=== PATIENT | female | born 1990 | race Caucasian/White ===

== ENCOUNTER 2017-10-05 19:05 | Emergency (ER) | payer SELFPAY ==
[~2017-10-05] VITALS: Ht 149.9 cm; Wt 63.5 kg
--- NOTE | 2017-10-05 19:09 | ED.ADGEN ---
Adult General Chief Complaint Chief Complaint " I got bad dental pain.. it just started all sudden..." HPI HPI Patient is a 27 year old female who presents with above hx and complaints of dental pain. Pt. localizes her pain in molar areas 15, 16. Has other areas of dental decay. No trismus. Pt. denies hx of immunosuppression. States recently has move into area and not made follow up with Dentist. Review of Systems Review of Systems Constitutional: Denies fever or chills [] Eyes: Denies change in visual acuity, redness, or eye pain [] HENT: Denies nasal congestion or sore throat []Complaints of dental pain. Respiratory: Denies cough or shortness of breath [] Cardiovascular: No additional information not addressed in HPI [] GI: Denies abdominal pain, nausea, vomiting, bloody stools or diarrhea [] : Denies dysuria or hematuria [] Musculoskeletal: Denies back pain or joint pain [] Integument: Denies rash or skin lesions [] Neurologic: Denies headache, focal weakness or sensory changes [] Endocrine: Denies polyuria or polydipsia [] All other systems were reviewed and found to be within normal limits, except as documented in this note. Family History Family History Non-contributory Current Medications Current Medications Current Medications Medications (Trade) Dose Ordered Sig/Raudel Start Time Stop Time Status Last Admin Dose Admin Cephalexin HCl (Keflex) 500 mg 1X ONCE 10/05/17 20:45 10/05/17 20:46 DC 10/05/17 20:51 500 MG Hydrocodone Bitartrate/ Ibuprofen (Vicoprofen 7.5-200) 2 tab 1X ONCE 10/05/17 20:45 10/05/17 20:46 DC 10/05/17 20:51 2 TAB see Nursing for home meds. Allergies Allergies Allergies Coded Allergies Type Severity Reaction Last Updated Verified acetaminophen Allergy Unknown 10/05/17 Yes hydrogen peroxide Allergy Unknown 10/05/17 Yes oxycodone Allergy Unknown 10/05/17 Yes Physical Exam Physical Exam Constitutional: Moderately acute distress, non-toxic appearance. [] HENT: Normocephalic, atraumatic, bilateral external ears normal, oropharynx moist, no oral exudates, nose normal. []Denial caries.. pain localized to 15, 16 molar area. No adenopathy or pointing abscess. Lip rings, tongue stud. Eyes: PERRLA, EOMI, conjunctiva normal, no discharge. [] Neck: Normal range of motion, no tenderness, supple, no stridor. [] Cardiovascular:Heart rate regular rhythm, no murmur [] Lungs & Thorax: Bilateral breath sounds equal with scattered wheezes on auscultation [] Abdomen: Bowel sounds normal, soft, no tenderness, no masses, no pulsatile masses. [] Skin: Warm, dry, no erythema, no rash. [] Back: No tenderness, no CVA tenderness. [] Extremities: No tenderness, no cyanosis, no clubbing, ROM intact, no edema. [] Neurologic: Alert and oriented X 3, normal motor function, normal sensory function, no focal deficits noted. [] Psychologic: Affect anxious, , judgement normal, mood normal. [] Current Patient Data Vital Signs Vital Signs Date Time Temp Pulse Resp B/P (MAP) Pulse Ox O2 Delivery O2 Flow Rate FiO2 10/05/17 19:22 98.8 83 21 98 Room Air EKG EKG [] Radiology/Procedures Radiology/Procedures [] Course & Med Decision Making Course & Med Decision Making Pertinent Labs and Imaging studies reviewed. (See chart for details). Must follow up with dentist. Take Keflex 500 three times a day. Ibuprofen for pain. Marked pain take Vicoprofen. Must follow up. Further narcotics must be supplied by Dentist or primary. [] Final Impression Final Impression 1. Dental Pain[]- 15, 16. Problems: Dragon Disclaimer Dragon Disclaimer This electronic medical record was generated, in whole or in part, using a voice recognition dictation system. TUNG LINK MD October 05, 2017 19:09
[2017-10-05 19:22] VITALS: BP 137/71
[2017-10-05] MEDS ORDERED: CEPH-264 PO (20:34)
[2017-10-05] MEDS ORDERED: HYDR-79 PO (20:34)
[2017-10-05] MEDS ORDERED: CEPHALEXIN 250 MG CAPSULE PO ONE (20:45)
[2017-10-05] MEDS ORDERED: HYDROcodon/IBUPROFEN 7.5/200MG 1 TAB TABLET PO ONE (20:45)
== END 2017-10-05 21:11 | disposition home or self-care (01) ==
LOC: ER 19:05
DX: K08.89 Other specified disorders of teeth and supporting structures (principal); Z88.6 Allergy status to analgesic agent; Z88.5 Allergy status to narcotic agent
CPT/HCPCS: 99283

== ENCOUNTER 2020-04-02 14:14 | Emergency (ER) | payer SELFPAY ==
[~2020-04-02] VITALS: Ht 147.3 cm; Wt 59.9 kg
[~2020-04-02 14:14] MED LIST: CEPH-264 PO; HYDR-1179 PO
[2020-04-02] MEDS ORDERED: IV NORMAL SALINE 1,000ML 1,000 ML IV SCH (14:43)
[2020-04-02] MEDS ORDERED: ACETAMINOPHEN 650 MG/20.3 ML SOLUTION. PO ONE (14:45)
[2020-04-02] MEDS ORDERED: PIPERACILLIN/TAZOBACTAM 4.5 GM in IV NORMAL SALINE 50ML 50 ML IV ONE (14:45)
[2020-04-02] MEDS ORDERED: DEXAMETHASONE SOD PHOS 10 MG/ML VIAL. IV ONE (14:45)
[2020-04-02] MEDS ORDERED: 0.9 % SODIUM CHLORIDE 10 ML DISP.SYRIN. IV PRN (14:45)
[2020-04-02] MEDS ORDERED: VANCOMYCIN PER PHARMACY MC ONE (14:45)
[2020-04-02] MEDS ORDERED: IV NORMAL SALINE 50ML 50 ML ONE (14:55)
[2020-04-02] MEDS ORDERED: PIPERACILLIN/TAZOBACTAM 4.5 GM VIAL IV ONE (14:55)
[2020-04-02] MEDS ORDERED: IOHEXOL 300 MG/ML 75 ML VIAL. IV ONE (15:00)
[2020-04-02] MEDS ORDERED: VANCOMYCIN 1.5 GM in IV NORMAL SALINE 500ML 500 ML IV ONE (15:00)
--- NOTE | 2020-04-02 15:11 | PHYS DOC ---
Past History Past Medical History: No Pertinent History (MARY STEEL APRN) Past Surgical History: No Surgical History (MARY STEEL APRN) Alcohol Use: Occasionally Drug Use: None (MARY STEEL APRN) Adult General Chief Complaint Chief Complaint: COUGH HPI HPI Patient is a 29-year-old female patient presenting to the ED today complaining of sore throat that began 1 week ago. Patient states she has tried taking her old amoxicillin with no relief. She states symptoms have gotten worse and now she had swollen tonsils a fever and a cough. Denies any chest pain or shortness of breath. (MARY STEEL APRN) Review of Systems Review of Systems Constitutional: Reports fever Eyes: Denies change in visual acuity, redness, or eye pain [] HENT: Reports sore throat with enlarged tonsils. Denies nasal congestion Respiratory: Reports cough, denies shortness of breath [] Cardiovascular: No additional information not addressed in HPI [] GI: Denies abdominal pain, nausea, vomiting, bloody stools or diarrhea [] : Denies dysuria or hematuria [] Musculoskeletal: Denies back pain or joint pain [] Integument: Denies rash or skin lesions [] Neurologic: Denies headache, focal weakness or sensory changes [] All other systems were reviewed and found to be within normal limits, except as documented in this note. (MARY STEEL APRN) Allergies Allergies Allergies Coded Allergies Type Severity Reaction Last Updated Verified hydrogen peroxide Allergy Unknown 10/05/17 Yes oxycodone Allergy Unknown 10/05/17 Yes (MARY STEEL APRN) Physical Exam Physical Exam Constitutional: Well developed, well nourished, no acute distress, non-toxic appearance. [] HENT: Normocephalic, atraumatic, bilateral external ears normal, oropharynx moist, no oral exudates, nose normal. [] Airways open, +3 tonsils, midline uvula, mild exudate noted bilaterally +3 tonsils worse on the right side. Eyes: PERRLA, EOMI, conjunctiva normal, no discharge. [] Neck: Normal range of motion, no tenderness, supple, no stridor. [] Cardiovascular:Heart rate regular rhythm, no murmur [] Lungs & Thorax: Bilateral breath sounds clear to auscultation [] Abdomen: Bowel sounds normal, soft, no tenderness, no masses, no pulsatile masses. [] Skin: Warm, dry, no erythema, no rash. [] Back: No tenderness, no CVA tenderness. [] Extremities: No tenderness, no cyanosis, no clubbing, ROM intact, no edema. [] Neurologic: Alert and oriented X 3, normal motor function, normal sensory function, no focal deficits noted. [] Psychologic: Affect normal, judgement normal, mood normal. [] (MARY STEEL APRN) EKG EKG [] (MARY STEEL APRN) Radiology/Procedures Radiology/Procedures []PROCEDURE: CT SOFT TISSUE NECK W/CONTRAST EXAM: CT Neck with IV contrast INDICATION: Reason: peritonsillar abscess / Spl. Instructions: / History: TECHNIQUE: Multiple contiguous axial images were obtained of the neck with the use of IV contrast. Post-processing reconstructed images were obtained for interpretation. All CT scans performed at this facility utilize dose optimization techniques as appropriate to the exam, including the following: Automated exposure control and adjustment of the mA and/or KV according to patient size (this includes techniques or standardized protocols for targeted exams where dose is indication/reason for exam). IV CONTRAST: Administered COMPARISON: None FINDINGS: INTRACRANIAL STRUCTURES & ORBITS: Unremarkable. AERODIGESTIVE: Bilateral faucial tonsils demonstrates a striated pattern of enhancement with no discrete areas of hypoenhancement. Nasal cavity, nasopharynx, oral cavity, oropharynx, hypopharynx, larynx, and visualized trachea and esophagus otherwise demonstrate no masses or abnormal enhancement. Incidental tongue piercing, nasal piercings, and lateral left eyebrow piercings are noted. CERVICAL LYMPH NODES & SOFT TISSUES: No adenopathy, soft tissue mass, or fluid collection. THYROID & SALIVARY GLANDS: Unremarkable. LUNG APICES: Clear. OSSEOUS: Unremarkable IMPRESSION: Bilateral faucial tonsillitis. No peritonsillar abscess. Electronically signed by: Priyank Shay MD (04/02/2020 3:51 PM) [facility] [place] SIGNED BY: PRIYANK SHAY MD DATE: 04/02/20 1553 CC: MARY STEEL APRN; PCP,NO ~ (MARY STEEL APRN) Heart Score Risk Factors: Risk Factors: DM, Current or recent (<one month) smoker, HTN, HLP, family history of CAD, obesity. Risk Scores: Risk Factors: DM, Current or recent (<one month) smoker, HTN, HLP, family history of CAD, obesity. (MARY STEEL APRN) Course & Med Decision Making Course & Med Decision Making Pertinent Labs and Imaging studies reviewed. (See chart for details) This is a 29-year-old female patient presented to the ED today with sore throat fever and cough, sore throat began a week ago. She has tried taking amoxicillin with no relief. Arrives in the ED with a fever of 103, HR 137, blood pressure 146/82, O2 sats 97% on room air, respiration 24. Sepsis work-up was initiated including IV fluids and antibiotics (zosyn and V ancomycin. She was swabbed for influenza, COVID-[address] a CT of the neck soft tissue was obtained. CBC with a WBC of 19.8 and a left shift. CMP with K of 3.1 given 40meq of K. Urine positive for UTI. CT of the neck soft tissue noted acute tonsillitis, no peritonsillar abscess. Spoke with Dr. Cassidy who requested patient to be transferred out because we do not have ENT at [facility] Spoke with Dr. Romero who accepted patient for admission at [facility]. Patient states she is feeling better. Throat and exterior neck are not as swollen. Airway is still open EMS will transport (MARY STEEL APRN) Dragon Disclaimer Dragon Disclaimer This electronic medical record was generated, in whole or in part, using a voice recognition dictation system. (MARY STEEL APRN) Date and Time of Assessment Date: Apr 02, 2020 Time: 15:33 (MARY STEEL APRN) Fluid Challenge: Is the fluid challenge complet: No IBW Target Volume Used: No BMI > 30: No (MARY STEEL APRN) Vital Signs Temperature Source: Oral (MARY STEEL APRN) Respirations Respiratory Effort: Normal Respiratory Pattern: Normal (MARY STEEL APRN) Cardiovascular Pulse Rhythm: Regular Heart: Nml rate, reg. rhythm (MARY STEEL APRN) Lung Sounds Breath Sounds: Clear (MARY STEEL APRN) Capillary Refill Capillary Refill: Rt Hand > 3 seconds (MUTUNGA,MARY BACKUP ENGINEER) Peripheral Pulse Pulse Location: Monitor Pulse Strength: Normal (2+) (MUTUNGA,MARY BACKUP ENGINEER) Integumentary Skin: Warm Skin Moisture: Moist Skin Turgor: Normal Skin Color: warm Fingernail Color: WNL (MUTUNGA,MARY BACKUP ENGINEER) Attending Co-Sign The patient was seen and interviewed as well as examined at the bedside. The chart was reviewed. The case was discussed. Agree with the plan of care. (HERIBERTO MORENO DO) Departure Departure: Impression: Primary Impression: Fever Additional Impressions: Sepsis Acute tonsillitis UTI (urinary tract infection) Cough Disposition: 05 DC/TRF OTHER TYPE INSTITUTI Condition: STABLE Referrals: PCP,NO (PCP) Problem Qualifiers Primary Impression: Fever Fever type: unspecified Qualified Codes: R50.9 - Fever, unspecified Additional Impressions: Sepsis Sepsis type: sepsis due to unspecified organism Sepsis acute organ dysfunction status: unspecified Qualified Codes: A41.9 - Sepsis, unspecified organism Acute tonsillitis Pharyngitis/tonsillitis etiology: unspecified etiology Qualified Codes: J03.90 - Acute tonsillitis, unspecified UTI (urinary tract infection) Urinary tract infection type: site unspecified Hematuria presence: without hematuria Qualified Codes: N39.0 - Urinary tract infection, site not specified MARY STEEL APRN Apr 02, 2020 15:11 HERIBERTO MORENO DO Apr 03, 2020 06:24
[2020-04-02 15:28] LABS: CALCIUM 8.9 mg/dL (8.5-10.1); CREATININE 0.9 mg/dL (0.6-1.0); GFR 74.6; POTASSIUM 3.1 mmol/L (3.5-5.1)
[2020-04-02 15:35] LABS: ALBUMIN 3.4 g/dL (3.4-5.0); ALBUMIN/GLOBULIN RATIO 0.7 (1.0-1.7); TOTAL BILIRUBIN 0.5 mg/dL (0.2-1.0); TOTAL PROTEIN 8.4 g/dL (6.4-8.2)
[2020-04-02 15:35] LABS: BILIRUBIN,URINE NEG (NEG); CLARITY,URINE CLEAR; COLOR,URINE AMBER; GLUCOSE,URINE 100 mg/dL (NEG); NITRITE,URINE POS (NEG); UROBILINOGEN,URINE >=8.0 mg/dL (0.2 mg/dL)
[2020-04-02 15:36] LABS: BASO # 0.1 x10^3/uL (0.0-0.2); BASO % 1 % (0-3); EOS # 0.1 x10^3/uL (0.0-0.7); EOS % 0 % (0-3); HEMATOCRIT 38.8 % (36.0-47.0); HEMOGLOBIN 13.1 g/dL (12.0-15.5); LYMPH # 1.8 x10^3/uL (1.0-4.8); LYMPH % 9 % (24-48); MEAN CORPUSCULAR HEMOGLOBIN 29 pg (25-35); MEAN CORPUSCULAR HGB CONC 34 g/dL (31-37); MEAN CORPUSCULAR VOLUME 85 fL (79-100); MONO # 1.9 x10^3/uL (0.0-1.1); MONO % 10 % (0-9); NEUT # 15.9 x10^3uL (1.8-7.7); NEUT % 80 % (31-73); PLATELET COUNT 375 x10^3/uL (140-400); RED BLOOD COUNT 4.57 x10^6/uL (3.50-5.40); RED CELL DISTRIBUTION WIDTH 13.1 % (11.5-14.5); WHITE BLOOD COUNT 19.8 x10^3/uL (4.0-11.0)
[2020-04-02 15:36] LABS: RBC,URINE 0 /HPF (0-2); SQUAMOUS EPITHELIAL CELL,UR MOD /LPF
[2020-04-02 15:37] LABS: BACTERIA,URINE FEW /HPF (0-FEW)
[2020-04-02 15:52] LABS: INFLUENZA A PATIENT NEGATIVE (NEGATIVE); INFLUENZA B PATIENT NEGATIVE (NEGATIVE)
--- NOTE | 2020-04-02 15:54 | RAD ---
EXAM: CT Neck with IV contrast INDICATION: Reason: peritonsillar abscess / Spl. Instructions: / History: TECHNIQUE: Multiple contiguous axial images were obtained of the neck with the use of IV contrast. Post-processing reconstructed images were obtained for interpretation. All CT scans performed at this facility utilize dose optimization techniques as appropriate to the exam, including the following: Automated exposure control and adjustment of the mA and/or KV according to patient size (this includes techniques or standardized protocols for targeted exams where dose is indication/reason for exam). IV CONTRAST: Administered COMPARISON: None FINDINGS: INTRACRANIAL STRUCTURES & ORBITS: Unremarkable. AERODIGESTIVE: Bilateral faucial tonsils demonstrates a striated pattern of enhancement with no discrete areas of hypoenhancement. Nasal cavity, nasopharynx, oral cavity, oropharynx, hypopharynx, larynx, and visualized trachea and esophagus otherwise demonstrate no masses or abnormal enhancement. Incidental tongue piercing, nasal piercings, and lateral left eyebrow piercings are noted. CERVICAL LYMPH NODES & SOFT TISSUES: No adenopathy, soft tissue mass, or fluid collection. THYROID & SALIVARY GLANDS: Unremarkable. LUNG APICES: Clear. OSSEOUS: Unremarkable IMPRESSION: Bilateral faucial tonsillitis. No peritonsillar abscess. Electronically signed by: Kaden Shay MD (04/02/2020 3:51 PM) [facility] [place]
[2020-04-02 16:29] LABS: % BASOS 1 % (0-3); % EOS 1 % (0-5); % LYMPHS 7 % (24-48); % MONOS 6 % (0-10); % SEGS 85 % (35-66)
[2020-04-02 16:30] LABS: PLT ESTIMATE ADEQUATE (ADEQUATE)
[2020-04-02] MEDS ORDERED: POTASSIUM CHLORIDE 20 MEQ TABLET.ER. PO ONE (17:15)
[2020-04-02 17:27] VITALS: BP 120/71
--- NOTE | 2020-04-03 11:57 | RAD ---
EXAM: Chest, single view. HISTORY: Cough. Fever. COMPARISON: None. FINDINGS: A frontal view of the chest is obtained. There is no infiltrate, pleural effusion or pneumothorax. The heart is normal in size. There are metallic clips overlying the aortic arch. IMPRESSION: No acute pulmonary finding. Electronically signed by: Mendy Collier MD (04/03/2020 11:54 AM) [id number]
== END 2020-04-02 19:39 | disposition short-term general hospital (02) ==
LOC: ER 14:14
DX: A41.9 Sepsis, unspecified organism (principal); J03.90 Acute tonsillitis, unspecified; N39.0 Urinary tract infection, site not specified; Z20.828 Contact with and (suspected) exposure to other viral communicable diseases; Z88.5 Allergy status to narcotic agent; Z88.8 Allergy status to other drugs, medicaments and biological substances
CPT/HCPCS: 36415; 70491; 71045; 80053; 81001; 81025; 83605; 85007; 85025; 87040; 87070; 87804; 87880; 96365; 96367; 96375; 99285; C9803; J1100; J2543; J3370; J7030; J7040; Q9967; U0003

== ENCOUNTER 2020-08-07 20:38 | Emergency (ER) | payer SELFPAY ==
[~2020-08-07] VITALS: Ht 147.3 cm; Wt 63.6 kg
[2020-08-07 20:40] VITALS: BP 136/79
[2020-08-07] MEDS: IBUPROFEN 600 MG TABLET. PO ONE (21:07)
[2020-08-07] MEDS ORDERED: PENI500T PO (21:10)
--- NOTE | 2020-08-07 21:11 | PHYS DOC ---
Past History Past Medical History: Depression, Other Additional Past Medical Histor: SCOLIOSIS (MIKKI PRAJAPATI APRN) Past Surgical History: Other Additional Past Surgical Histo: HEART SURGERY A (MIKKI PRAJAPATI APRN) Alcohol Use: None Drug Use: None (MIKKI PRAJAPATI APRN) General Adult HPI: HPI: Patient is a 30-year-old female who presents with sore throat and fever since last night. Patient denies taking anything for pain or fever at home. Patient states that she is able to keep down liquids. Denies nausea/vomiting/diarrhea. (MIKKI PRAJAPATI APRN) Review of Systems: Review of Systems: Constitutional: Denies fever or chills Eyes: Denies change in visual acuity HENT: Denies nasal congestion, reports sore throat Respiratory: Denies cough or shortness of breath Cardiovascular: Denies chest pain or edema GI: Denies abdominal pain, nausea, vomiting, bloody stools or diarrhea : Denies dysuria Musculoskeletal: Denies back pain or joint pain Integument: Denies rash Neurologic: Denies headache, focal weakness or sensory changes Endocrine: Denies polyuria or polydipsia Lymphatic: Denies swollen glands Psychiatric: Denies depression or anxiety (MIKKI PRAJAPATI APRN) Allergies: Allergies: Allergies Coded Allergies Type Severity Reaction Last Updated Verified hydrogen peroxide Allergy Unknown 10/05/17 Yes oxycodone Allergy Unknown 10/05/17 Yes (MIKKI PRAJAPATI APRN) Physical Exam: PE: Constitutional: Well developed, well nourished, no acute distress, non-toxic appearance. [] HENT: Normocephalic, oropharynx moist, red, oral exudates Eyes: PERRLA, EOMI, conjunctiva normal, no discharge. [] Neck: Normal range of motion, no tenderness, supple, no stridor. [] Cardiovascular:Heart rate regular rhythm, no murmur [] Lungs & Thorax: Bilateral breath sounds clear to auscultation [] Abdomen: Bowel sounds normal, soft, no tenderness, no masses, no pulsatile masses. [] Skin: Warm, dry, no erythema, no rash. [] Back: No tenderness, no CVA tenderness. [] Extremities: No tenderness, no cyanosis, no clubbing, ROM intact, no edema. [] Neurologic: Alert and oriented X 3, normal motor function, normal sensory function, no focal deficits noted. [] Psychologic: Affect normal, judgement normal, mood normal. [] (MIKKI PRAJAPATI APRN) EKG: EKG: [] (MIKKI PRAJAPATI APRN) Radiology/Procedures: Radiology/Procedures: [] (MIKKI PRAJAPATI APRN) Heart Score: C/O Chest Pain: No Risk Factors: Risk Factors: DM, Current or recent (<one month) smoker, HTN, HLP, family history of CAD, obesity. Risk Scores: Score 0 - 3: 2.5% MACE over next 6 weeks - Discharge Home Score 4 - 6: 20.3% MACE over next 6 weeks - Admit for Clinical Observation Score 7 - 10: 72.7% MACE over next 6 weeks - Early Invasive Strategies (MIKKI PRAJAPATI APRN) Course & Med Decision Making: Course & Med Decision Making Pertinent Labs and Imaging studies reviewed. (See chart for details) [] Patient being seen for sore throat since last night and fever. Denies taking anything for pain. Tonsils are swollen and red, with tonsillar exudate. Patient is afebrile. Rapid strep ordered. Rapid strep positive. Patient given ibuprofen and the emergency room and sent home with a prescription. Patient to complete prescription as directed. Take Tylenol and ibuprofen at home for fever and discomfort. Patient is to return to the emergency room with worsening symptoms or concerns. (MIKKI PRAJAPATI APRN) Dragon Disclaimer: Dragon Disclaimer: This electronic medical record was generated, in whole or in part, using a voice recognition dictation system. (MIKKI PRAJAPATI APRN) Departure Departure: Impression: Primary Impression: Streptococcal pharyngitis Disposition: 01 DC HOME SELF CARE/HOMELESS Condition: STABLE Referrals: PCP,NO (PCP) Patient Instructions: Strep Throat, Group A Streptococcus Additional Instructions: You were seen in the emergency room for sore throat and fever. Your rapid strep was positive. I have written you a prescription for an antibiotic. Please take antibiotic as directed. Take ibuprofen and Tylenol at home for discomfort and fever. Return to the emergency room with worsening symptoms or concerns. EMERGENCY DEPARTMENT GENERAL DISCHARGE INSTRUCTIONS Thank you for coming to [facility] (ED) today and trusting us with you care. We trust that you had a positivie experience in our Emergency Department. If you wish to speak to the department management, you may call the director at [phone]. YOUR FOLLOW UP INSTRUCTIONS ARE FOLLOWS: 1. Do you have a private Doctor? If you do not have a private doctor, please ask for a resource list of physicians or clinics that may be able to assist you with fol low up care. 2. The Emergency Physician has interpreted your x-rays. The X-Ray specialist will also review them. If there is a change in the findings, you will be notified in 48 hours when at all possible. 3. A lab test or culture has been done, your results will be reviewed and you will be notified if you need a change in treatment. ADDITIONAL INSTRUCTIONS AND INFORMATION: 1. Your care today has been supervised by a physician who is specially trained in emergency care. Many problems require more than one evaluation for a complete diagnosis and treatment. We recommend that you schedule your follow up appointment as r ecommended to ensure complete treatment of you illness or injury. If you are unable to obtain follow up care and continue to have a problem, or if your condition worsens, we recommend that you return to the ED. 2. We are not able to safely determine your condition over the phone nor are we able to give sound medical advice over the phone. For these safety reasons, if you call for medical advice we will ask you to come to the ED for further evaluation. 3. If you have any questions regarding these discharge instructions please call the ED at [phone]. SAFETY INFORMATION: In the interest of safety, wellness, and injury prevention; we encourage you to wear your sealbelt, if you smoke; quite smoking, and we encourage family to use a protective helmet for bicycling and other sporting events that present an increased risk for head injury. IF YOUR SYMPTOMS WORSEN OR NEW SYMPTOMS DEVELOP, OR YOU HAVE CONCERNS ABOUT YOUR CONDITION; OR IF YOUR CONDITION WORSENS WHILE YOU ARE WAITING FOR YOUR FOLLOW UP APPOINTMENT; EITHER CONTACT YOUR PRIMARY CARE DOCTOR, THE PHYSICIAN WHOSE NAME AND NUMBER YOU WERE GIVEN, OR RETURN TO THE ED IMMEDIATELY. Scripts Penicillin V Potassium (PENICILLIN V POTASSIUM) 500 Mg Tablet 500 MG PO BID for infection for 10 Days, #19 TAB Prov: MIKKI PRAJAPATI APRN 08/07/20 Attending Signature Attending Signature I have participated in the care of this patient and I have reviewed and agree with all pertinent clinical information above including history, exam, and recommendations. (TUNG LINK MD) MIKKI PRAJAPATI APRN Aug 07, 2020 21:11 TUNG LINK MD Aug 08, 2020 03:12
[2020-08-07] MEDS ORDERED: PENICILLIN V K 250 MG TABLET. ONE (21:19)
[2020-08-07] MEDS: PENICILLIN V K 250 MG TABLET. PO ONE (21:21)
== END 2020-08-07 21:25 | disposition home or self-care (01) ==
LOC: ER 20:38
DX: J02.0 Streptococcal pharyngitis (principal); B95.0 Streptococcus, group A, as the cause of diseases classified elsewhere; Z88.5 Allergy status to narcotic agent; Z88.8 Allergy status to other drugs, medicaments and biological substances
CPT/HCPCS: 87880; 99283

== ENCOUNTER 2021-06-09 14:04 | Emergency (ER) | payer OTHER ==
[~2021-06-09] VITALS: Ht 149.9 cm; Wt 63.0 kg
[~2021-06-09 14:04] MED LIST changes: +PENI500T PO
[2021-06-09 16:20] VITALS: BP 119/64
[2021-06-09 17:14] LABS: INFLUENZA A PATIENT NEGATIVE (NEGATIVE); INFLUENZA B PATIENT NEGATIVE (NEGATIVE)
--- NOTE | 2021-06-09 17:20 | PHYS DOC ---
Past History Past Medical History: No Pertinent History, Depression, Other Additional Past Medical Histor: SCOLIOSIS Past Surgical History: No Surgical History Additional Past Surgical Histo: PDA REPAIR Alcohol Use: None Drug Use: None Adult General Chief Complaint Chief Complaint: FLU SYMPTOM HPI HPI Patient is a 31 year old female who presents with flulike symptoms. She complains of sore throat, general malaise and myalgias. Has been ill over the last couple of days. Has cough symptoms. No nausea or vomiting. No shortness of breath. Primarily comes to the emergency department for a COVID test today. Review of Systems Review of Systems Constitutional: Denies fever or chills Eyes: Denies change in visual acuity, redness, or eye pain HENT: Nasal congestion, sore throat Respiratory: Cough Cardiovascular: No additional information not addressed in HPI GI: Denies abdominal pain : Denies Musculoskeletal: Myalgias Integument: Denies rash or skin lesions Neurologic: Denies Endocrine: Denies All other systems were reviewed and found to be within normal limits, except as documented in this note. Allergies Allergies Allergies Coded Allergies Type Severity Reaction Last Updated Verified hydrogen peroxide Allergy Unknown 10/05/17 Yes oxycodone Allergy Unknown 10/05/17 Yes Physical Exam Physical Exam Constitutional: Well developed, well nourished, no acute distress, non-toxic appearance. HENT: Normocephalic, atraumatic, bilateral external ears normal, oropharynx moist, no oral exudates, nose normal. Eyes: PERRLA, EOMI, conjunctiva normal, no discharge. Neck: Normal range of motion, no tenderness, supple, no stridor. Cardiovascular:Heart rate regular rhythm, no murmur Lungs & Thorax: Bilateral breath sounds clear to auscultation Skin: Warm, dry, no erythema, no rash Extremities: Normal range of motion Neurologic: Alert and oriented X 3 Current Patient Data Vital Signs Vital Signs Date Time Temp Pulse Resp B/P (MAP) Pulse Ox O2 Delivery O2 Flow Rate FiO2 06/09/21 16:20 97.5 92 18 119/64 (82) 97 Lab Results Laboratory Tests Test 06/09/21 16:08 Influenza Type A (Rapid) Negative (NEGATIVE) Influenza Type B (Rapid) Negative (NEGATIVE) SARS-CoV-2 Antigen (Rapid) Positive (NEGATIVE) *A EKG EKG [] Radiology/Procedures Radiology/Procedures [] Heart Score C/O Chest Pain: No Risk Factors: Risk Factors: DM, Current or recent (<one month) smoker, HTN, HLP, family history of CAD, obesity. Risk Scores: Risk Factors: DM, Current or recent (<one month) smoker, HTN, HLP, family history of CAD, obesity. Course & Med Decision Making Course & Med Decision Making Pertinent Labs and Imaging studies reviewed. (See chart for details) ED summary: Patient seen in the emergency department primarily for COVID test. Her physical examination is normal. She does have 2+ tonsils which is likely chronic. There is mild erythema but no exudates present. Nontoxic overall and has good air movement in all nguyen and normal oxygen saturation. No indication for additional work-up. Stable for discharge home. Diagnosis is explained to her and she is recommended to quarantine over the next 7 to 10 days. Follow-up with primary care doctor recommended the ER for any difficulty breathing Dragon Disclaimer Dragon Disclaimer This electronic medical record was generated, in whole or in part, using a voice recognition dictation system. Departure Departure: Impression: Primary Impression: COVID-19 Disposition: 01 HOME / SELF CARE / HOMELESS Condition: GOOD Referrals: [facility]PROLD[facility] (PCP) Patient Instructions: Viral Syndrome PIYUSH PIERRE DO Jun 09, 2021 17:20
== END 2021-06-09 17:30 | disposition home or self-care (01) ==
LOC: ER 14:04
DX: U07.1 COVID-19 (principal); Z88.5 Allergy status to narcotic agent; Z88.8 Allergy status to other drugs, medicaments and biological substances
CPT/HCPCS: 87428; 99283